=== PATIENT | male | born 1960 | race African-American/Black ===

== ENCOUNTER 2017-12-20 15:03 | Emergency (ER) | payer MEDICAID ==
[~2017-12-20] VITALS: Ht 172.7 cm; Wt 63.5 kg
[~2017-12-20 15:03] MED LIST: ABILIFY10 MG ORAL; HYDROCODON-ACE1 EA16 ORAL; HYDROCODON-ACE1 EAC8 ORAL; QUETIAPINE FUMA25 MG ORAL; SOMA350 MG PO; TRAMADOL HCL50 MG ORAL
[2017-12-20] MEDS ORDERED: IBUPROFEN600 MG ORAL (16:03)
[2017-12-20 16:06] VITALS: BP 120/70
--- NOTE | 2017-12-20 17:12 | Emergency Room Report ---
History of Present Illness General Chief Complaint: Upper Extremity Injury Source: Patient (CROW DIXON) Present Illness HPI The patient is a 57-year-old male presenting for pain after falling today. He states that he [place] and [place] onto his right side. He denies hitting his head or loss of consciousness. He states that he broke his fall with his right elbow and hand. He is now complaining of pain to these areas described as a 4/10 dull ache. Worse with movement and touch. he denies previous injury to these areas. He denies any numbness or tingling. He denies any other injury or symptoms (CROW DIXON) Allergies: Coded Allergies: No Known Allergies (Unverified , 12/11/13) Patient History Past Medical History: see triage record Pertinent Family History: none Reviewed Nursing Documentation: PMH: Agreed, PSxH: Agreed (CROW DIXON) Nursing Documentation-PMH History Of Psychiatric Problem: Yes - depression (CROW DIXON) Review of Systems All Other Systems: negative except mentioned in HPI (CROW [email or web address].Sarah) Physical Exam Vital Signs Date Time Temp Pulse Resp B/P (MAP) Pulse Ox O2 Delivery O2 Flow Rate FiO2 12/20/17 15:16 98.0 78 16 120/70 98 Room Air 98.1 Sp02 EP Interpretation: reviewed, normal General Appearance: no apparent distress, alert, GCS 15, non-toxic Head: normocephalic, atraumatic Eyes: bilateral eye normal inspection, bilateral eye PERRL ENT: hearing grossly normal, normal pharynx, no angioedema, normal voice Neck: full range of motion, supple/symm/no masses Musculoskeletal: back normal, gait/station normal, normal range of motion, tender - R lateral elbow and R 1st MCPJ Neurologic: alert, oriented x3, responsive, motor strength/tone normal, sensory intact, speech normal Psychiatric: judgement/insight normal, memory normal, mood/affect normal, no suicidal/homicidal ideation Skin: normal color, no rash, warm/dry, well hydrated (CROW DIXON) Medical Decision Making PA Attestation Dr. Castro is my supervising physician. Patient management was discussed with my supervising physician (CROW DIXON) Diagnostic Impression: Primary Impression: Hand contusion Qualified Codes: S60.221A - Contusion of right hand, initial encounter Additional Impression: Elbow contusion Qualified Codes: S50.01XA - Contusion of right elbow, initial encounter ER Course The patient is a 57-year-old male presenting for pain after falling today Ddx considered include but not limited to sprain/strain, fracture, contusion PE: NAD R lateral elbow and R 1st MCPJ. No deformity. No ecchymosis. Full AROM intact. Xrays of the elbow and hand unremarkable. Given prescription for motrin. He will FU with PMD. ER precautions given (CROW [email or web address].A.) Other X-Ray Diagnostic Results Other X-Ray Diagnostic Results #1: X-Ray ordered: R elbow # of Views/Limited Vs Complete: 3 View Indication: Pain EP Interpretation: Yes PA Xray: Interpretation reviewed, by supervising MD, and agrees with findings. Interpretation: no dislocation, no soft tissue swelling, no fractures Impression: No acute disease Electronically Signed by: Crow Dixon PA-C Other X-Ray Diagnostic Results #2: X-Ray ordered: R hand # of Views/Limited Vs Complete: 3 View Indication: Pain EP Interpretation: Yes PA Xray: Interpretation reviewed, by supervising MD, and agrees with findings. Interpretation: no dislocation, no soft tissue swelling, no fractures Impression: No acute disease Electronically Signed by: Crow Dixon PA-C (CROW DIXON P.A.) Other X-Ray Diagnostic Results : X-Ray ordered: hand and elbow PA Xray: Interpretation reviewed, by supervising MD, and agrees with findings. - Alistair Castro MD (Alistair Castro M.D.) Last Vital Signs Date Time Temp Pulse Resp B/P (MAP) Pulse Ox O2 Delivery O2 Flow Rate FiO2 12/20/17 16:06 208.4 16 120/70 98 Room Air 208.4 12/20/17 15:16 78 Status: improved (CROW DIXON P.A.) Disposition: HOME, SELF-CARE Condition: Improved Scripts Ibuprofen* (MOTRIN*) 600 Mg Tablet 600 MG ORAL Q8H Y for For Pain, #30 TAB 0 Refills Prov: CROW DIXON 12/20/17 Patient Instructions: Contusion, RICE for Routine Care of Injuries Additional Instructions: I discussed my findings with the patient. All questions and concerns have been answered. Treatment and medication compliance have been addressed. I advised the patient that they need to follow up with PMD in 3-5 days. Return to ED if pain remains or worsens, numbness or tingling occurs, new rash is noticed, fever is noticed, or if needed for any reason. Patient verbalized understanding of discharge instructions. CROW DIXON Dec 20, 2017 17:12 Alistair Castro M.D. Dec 22, 2017 02:38
--- NOTE | 2017-12-21 12:16 | Diagnostic Imaging Report ---
Indication: pain Findings: 3 views of the right hand were obtained. Normal bony mineralization and alignment are demonstrated. No acute fractures, erosions, or periosteal reaction are seen. Soft tissues are unremarkable. Impression: No acute findings.
--- NOTE | 2017-12-21 12:16 | Diagnostic Imaging Report ---
Indication: Pain Findings: 3 views of the right elbow were obtained. No acute fractures, malalignment, erosions or periostitis are identified. Bone mineralization is within normal limits. Soft tissues are unremarkable. Impression: Negative examination of the elbow.
== END 2017-12-20 16:06 | disposition home or self-care (01) ==
LOC: EMR 15:28
DX: S60.221A Contusion of right hand, initial encounter (principal); S50.01XA Contusion of right elbow, initial encounter; W07.XXXA Fall from chair, initial encounter; Y92.512 Supermarket, store or market as the place of occurrence of the external cause; F32.9 Major depressive disorder, single episode, unspecified
CPT/HCPCS: 99284